=== PATIENT | male | born 1955 | race Caucasian/White ===

== ENCOUNTER 2017-03-28 21:46 | Emergency (ER) | payer BC ==
[~2017-03-28] VITALS: Ht 170.2 cm; Wt 172.3 kg
[2017-03-28 22:33] LABS: HEMATOCRIT 39.4 % (38.0-50.0); MCH 28.4 PG (29.0-34.0); MCHC 32.5 G/DL (30.0-36.0); MCV 87.6 FL (86-99); MEAN PLAT.VOLUME 10.8 uM^3 (9.0-12.4); NRBC (%) 0.1 /100 WBC (0-0); PLATELET COUNT 172 K/uL (156-360); RBC DIS.WIDTH-SD 48.4 % (39-53)
[2017-03-28 22:37] LABS: ADD MIUA? YES; BILIRUBIN NEGATIVE; BLOOD LARGE; COLOR AMBER ((YELLOW)); GLUCOSE (STRIP) NEGATIVE; KETONES NEGATIVE; LEUKOCYTES LARGE; NITRITE POSITIVE; PROTEIN (STRIP) 100; SPECIFIC GRAVITY 1.029 (1.000-1.030)
[2017-03-28 22:49] LABS: CHLORIDE 103 mEq/L (99-109); POTASSIUM 4.1 mEq/L (3.7-5.4); SODIUM 135 mEq/L (136-147)
[2017-03-28 22:50] LABS: CASTS PRESENT /LPF; COARSE GRANULAR CASTS RARE /LPF; EPITHELIAL CELLS 1+ /HPF; MUCUS TRACE /LPF; RED BLOOD CELLS NONE SEEN /HPF (0-5); WHITE BLOOD CELLS 20-30 /HPF (0-5)
[2017-03-28 22:51] LABS: GLUCOSE 158 mg/dL (70-99)
[2017-03-28 22:51] LABS: BACTERIA 3+ /HPF; CRYSTALS NONE SEEN
[2017-03-28 22:52] LABS: ANION GAP 10 MEQ/L (2-14)
[2017-03-28 22:55] LABS: GFR ESTIMATE (CALCULATED) 51 mL/min/ (58.99-99999)
[2017-03-28 22:56] LABS: UREA NITROGEN (BUN) 34 mg/dL (9-23)
[2017-03-28] MEDS ORDERED: BACTRIM,SEPT1 TABLET PO (23:40)
[2017-03-28 23:48] VITALS: BP 113/59
== END 2017-03-28 23:51 | disposition home or self-care (01) ==
LOC: EME 21:46
PROVIDERS: Physician Assistant
DX: N39.0 Urinary tract infection, site not specified (principal); L03.311 Cellulitis of abdominal wall; I10 Essential (primary) hypertension; E78.5 Hyperlipidemia, unspecified; E11.9 Type 2 diabetes mellitus without complications
CPT/HCPCS: 80048; 81003; 83605; 85027; 87086; 99281; 99284; J0696